=== PATIENT | female | born 1950 | race Caucasian/White ===

== ENCOUNTER 2018-03-28 11:33 | Emergency (ER) | payer MEDICARE, OTHER ==
--- NOTE | 2018-03-28 12:32 | EDM.PDOC ---
ED HPI GENERAL MEDICAL PROBLEM - General Chief Complaint: General Stated Complaint: FELL WHILE RUNNING Time Seen by Provider: 03/28/18 12:10 Source of Information: Reports: Patient History Limitations: Reports: No Limitations - History of Present Illness INITIAL COMMENTS - FREE TEXT/NARRATIVE: 67-year-old female was running and slipped on some gravel and fell forward onto her hands and hit her chin on the ground. She then fell forward and hit her forehead on the ground as well. She has abrasions and tenderness of the left hand, a superficial abrasion on the left knee and an abrasion on her chin. She feels nauseous but did not lose consciousness, denies neck injury or shortness of breath. Her main concerns are her hand and her persistent nausea. Onset: Sudden Duration: Hour(s): (Within the last hour) Location: Reports: Head, Face, Upper Extremity, Left, Lower Extremity, Right Associated Symptoms: Reports: Other (Feels nauseous) Left Hand Pain Score (Numeric/FACES): 3 - Related Data Allergies Allergy/AdvReac Type Severity Reaction Status Date / Time aspirin Allergy Hives Verified 03/28/18 12:01 Penicillins Allergy Anaphylactic Verified 03/28/18 12:01 Shock tetracycline Allergy Hives Verified 03/28/18 12:01 opoids Allergy Hives Uncoded 03/28/18 12:01 Home Meds: Home Meds NK [No Known Home Meds] 03/28/18 [History] Past Medical History Cardiovascular History: Reports: Arrhythmia, Heart Murmur Respiratory History: Reports: Asthma 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 Lumbar surgeryx3 Oncologic Surgical History: Reports: Other (See Below) Other Oncologic Surgeries/Procedures: removed partial cervix Social & Family History - Tobacco Use Smoking Status *Q: Never Smoker Second Hand Smoke Exposure: No - Caffeine Use Caffeine Use: Reports: Coffee, Soda - Alcohol Use Days Per Week of Alcohol Use: 2 Number of Drinks Per Day: 2 Total Drinks Per Week: 4 - Recreational Drug Use Recreational Drug Use: No ED ROS GENERAL - Review of Systems Review Of Systems: See Below Constitutional: Denies: Fever, Chills HEENT: Reports: Other (Patient does have chronic vertigo and intermittent double vision) Respiratory: Denies: Shortness of Breath, Pleuritic Chest Pain Cardiovascular: Denies: Chest Pain GI/Abdominal: Reports: Nausea. Denies: Vomiting Neurological: Reports: Dizziness. Denies: Headache ED EXAM, GENERAL - Physical Exam Exam: See Below Exam Limited By: No Limitations General Appearance: Alert, Anxious Eye Exam: Bilateral Eye: EOMI Throat/Mouth: Other (Patient is a superficial abrasion on the right chin, no bony tenderness) Neck: Supple, Non-Tender Respiratory/Chest: No Respiratory Distress Extremities: Other (Patient has a fairly deep abrasion over the dorsal aspect of the left hand near the fifth MP joint. There is ecchymosis and swelling, tenderness to palpation in the limited ability to flex the fifth finger. No significant deformity. There is a very superficial abrasion on the left knee with minimal tenderness.) Course - Vital Signs Last Recorded V/S: Last Vital Signs Temp 96.1 F 03/28/18 12:11 Pulse 75 03/28/18 12:11 Resp 16 03/28/18 12:11 BP 132/92 H 03/28/18 12:11 Pulse Ox 96 03/28/18 12:11 - Orders/Labs/Meds Orders: Active Orders 24 hr Category Date Time Status Hand Comp Min 3V Lt [CR] Stat Exams 03/28/18 12:18 Taken Meds: Medications Discontinued Medications Generic Name Dose Route Start Last Admin Trade Name Riky PRN Reason Stop Dose Admin Bacitracin 1 dose 03/28/18 12:42 03/28/18 12:46 Bacitracin Oint 1 Gm TOP 03/28/18 12:43 1 dose ONETIME ONE Administration - Re-Assessments/Exams Free Text/Narrative Re-Assessment/Exam: 03/28/18 12:31 A left hand x-ray was obtained. 03/28/18 12:51 Hand x-ray was negative. Wounds were covered with bacitracin and dressed. Neurologically she was doing fine, no further studies needed. 03/28/18 12:59 Patient was given a prescription for 5 10 mg diazepam to use for vertigo when necessary. Departure - Departure Time of Disposition: 13:12 Disposition: Home, Self-Care 01 Condition: Good Clinical Impression: Hand abrasion, non-infected, Abrasion of chin without infection - Discharge Information Instructions: Abrasion Referrals: PCP,None [Primary Care Provider] - Forms: ED Department Discharge Care Plan Goals: Keep wounds covered and clean while healing. Increase activity as tolerated and ice sore areas for the next 2 days. Anti-inflammatories will help, and use diazepam as needed for vertigo. - My Orders Last 24 Hours: My Active Orders 03/28/18 12:18 Hand Comp Min 3V Lt [CR] Stat - Assessment/Plan Last 24 Hours: My Active Orders 03/28/18 12:18 Hand Comp Min 3V Lt [CR] Stat
[2018-03-28] MEDS ORDERED: Bacitracin Oint 1 GM U/D Packet TOP ONE (12:42)
--- NOTE | 2018-03-30 09:59 | CR ---
Hand Comp Min 3V Lt CLINICAL HISTORY: Pain, injury FINDINGS: There is no acute fracture or dislocation of the hand. There is some interphalangeal joint space narrowing. There is also some narrowing at the first carpometacarpal junction. Impression: Mild osteoarthritic changes No fracture
== END 2018-03-28 13:11 | disposition home or self-care (01) ==
LOC: JP.ED 11:33
DX: S60.512A Abrasion of left hand, initial encounter (principal); S00.81XA Abrasion of other part of head, initial encounter; S80.212A Abrasion, left knee, initial encounter; Z88.6 Allergy status to analgesic agent; Z88.0 Allergy status to penicillin; W01.198A Fall on same level from slipping, tripping and stumbling with subsequent striking against other object, initial encounter
CPT/HCPCS: 73130-26-LT; 73130-LT; 99284

== ENCOUNTER 2018-05-01 12:11 | Emergency (ER) | payer MEDICARE, OTHER ==
--- NOTE | 2018-05-01 13:34 | EDM.PDOC ---
ED HPI GENERAL MEDICAL PROBLEM - General Chief Complaint: Eye Problems Stated Complaint: LEFT EYE RED,ITCHY Time Seen by Provider: 05/01/18 13:20 Source of Information: Reports: Patient, RN Notes Reviewed History Limitations: Reports: No Limitations - History of Present Illness INITIAL COMMENTS - FREE TEXT/NARRATIVE: Patient presents with sudden onset itching, redness and irritation with purulent discharge of left eye for 24 hours. She has tried a warm compress without any improvement. - Related Data Allergies Allergy/AdvReac Type Severity Reaction Status Date / Time aspirin Allergy Hives Verified 05/01/18 13:06 Penicillins Allergy Anaphylactic Verified 05/01/18 13:06 Shock tetracycline Allergy Hives Verified 05/01/18 13:06 opoids Allergy Hives Uncoded 03/28/18 12:01 Home Meds: Home Meds NK [No Known Home Meds] 03/28/18 [History] Past Medical History HEENT History: Reports: Impaired Vision, Other (See Below) Other HEENT History: double vision Cardiovascular History: Reports: Arrhythmia, Heart Murmur, Other (See Below) Other Cardiovascular History: PVC's Respiratory History: Reports: Asthma 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 Lumbar surgeryx3 Oncologic Surgical History: Reports: Other (See Below) Other Oncologic Surgeries/Procedures: removed partial cervix Social & Family History - Tobacco Use Smoking Status *Q: Never Smoker - Caffeine Use Caffeine Use: Reports: Coffee, Soda - Recreational Drug Use Recreational Drug Use: No ED ROS GENERAL - Review of Systems Review Of Systems: See Below Constitutional: Denies: Fever, Chills, Malaise HEENT: Reports: Eye Discharge, Eye Pain, Other (irritation, purulent drainage left eye. ) Respiratory: Reports: No Symptoms Cardiovascular: Reports: No Symptoms Musculoskeletal: Reports: No Symptoms Skin: Reports: Other (swelling and redness of left eye lids. ) Neurological: Reports: No Symptoms Psychiatric: Reports: No Symptoms Hematologic/Lymphatic: Reports: No Symptoms Immunologic: Reports: No Symptoms ED EXAM GENERAL W FULL EYE - Physical Exam Exam: See Below Text/Narrative:: Yovana presents today for complaints of left eye pain, irritation and purulent discharge for 24 hours. Use of warm pack did not help. Exam Limited By: No Limitations General Appearance: Alert, WD/WN, No Apparent Distress Eye Exam: Bilateral Eye: EOMI, PERRL, Other (conjunctival redness, slight edema , green purulent discharge.) Eyelids: Right: Normal Appearance, Left: Erythema, Lid Everted for Exam Conjunctiva & Sclera: Right: Normal Appearance, Left: Conjunctival Edema, Discharge Cornea Exam: Left: Normal Appearance Extraocular Movements: Bilateral: Intact Pupils: Normal Accommodation Pupillary Size: Bilateral: 3 mm Pupillary Reaction: Bilateral: Brisk Ears: Normal External Exam, Normal Canal, Hearing Grossly Normal, Normal TMs Head: Atraumatic, Normocephalic Respiratory/Chest: No Respiratory Distress, Lungs Clear, Normal Breath Sounds, No Accessory Muscle Use Cardiovascular: Normal Peripheral Pulses, Regular Rate, Rhythm, No Edema Neurological: Alert, Oriented, Normal Cognition, Normal Gait Skin Exam: Warm, Dry, Intact, Normal Color, No Rash Lymphatic: No Adenopathy Course - Vital Signs Last Recorded V/S: Last Vital Signs Temp 36.1 C 05/01/18 13:05 Pulse 69 05/01/18 13:05 Resp 15 05/01/18 13:05 BP 112/70 05/01/18 13:05 Pulse Ox 95 05/01/18 13:05 Departure - Departure Time of Disposition: 13:33 Disposition: Home, Self-Care 01 Condition: Good Clinical Impression: Bacterial conjunctivitis of left eye - Discharge Information *PRESCRIPTION DRUG MONITORING PROGRAM REVIEWED*: No *COPY OF PRESCRIPTION DRUG MONITORING REPORT IN PATIENT MORALES: No Referrals: PCP,None [Primary Care Provider] - Forms: ED Department Discharge Additional Instructions: You have been evaluated and treated for bacterial conjunctivitis of the left eye. Warm compresses four times a day as needed for comfort. Please use excellent hand hygiene to prevent spread. Use tobradex eye drop, 2 drops four times a day for 5 days. Return for worsening, issues or concerns. - Assessment/Plan Assessment:: Bacterial conjunctivitis left eye Plan: Patient evaluated and treated for bacterial conjunctivitis of the left eye. Warm compresses four times a day as needed for comfort. Please use excellent hand hygiene to prevent spread. Use tobradex eye drop, 2 drops four times a day for 5 days. Medication telephoned in to [place], [place]. Return for worsening, issues or concerns.
== END 2018-05-01 13:59 | disposition home or self-care (01) ==
LOC: JP.ED 12:11
DX: H10.9 Unspecified conjunctivitis (principal); Z88.6 Allergy status to analgesic agent; Z88.0 Allergy status to penicillin; Z88.1 Allergy status to other antibiotic agents; Z88.8 Allergy status to other drugs, medicaments and biological substances
CPT/HCPCS: 99283

== ENCOUNTER 2021-04-19 12:59 | Emergency (ER) | payer MEDICARE, OTHER ==
--- NOTE | 2021-04-19 14:38 | EDM.PDOC ---
ED HPI GENERAL MEDICAL PROBLEM - General Chief Complaint: Headache Stated Complaint: VISION DISTUBANCE/GARGLED SPEECH Time Seen by Provider: 04/19/21 14:32 Source of Information: Reports: Patient History Limitations: Reports: No Limitations - History of Present Illness INITIAL COMMENTS - FREE TEXT/NARRATIVE: Acute onset left vision defect yesterday evening. Round defect with colored peripheral "pixels". After few minutes moved to right eye. Vision problems lasted a few minutes, followed by expressive aphasia with inappropriate word usuage. Speech problems last a couple minutes followed by typical "ocular migraine" symptoms with a left retroorbital headache which is still present. The patient took one baby aspirin last night and repeated it this morning. Has a history of migraines ("ocular migraines") that she treats with cold compresses and Valium. Has history of V. tach and "pre-diabetes". Not a smoker and no history of strokes, coronary artery disease, hyperlipidemia or hypertension. Family history of strokes in old age. Minimal alcohol use. Scheduled for back surgery at [place] in May. Spends 1/2 year in [place]. - Related Data Allergies Allergy/AdvReac Type Severity Reaction Status Date / Time Penicillins Allergy Severe Anaphylactic Verified 04/19/21 13:31 Shock tetracycline Allergy Severe Hives Verified 04/19/21 13:31 aspirin Allergy Mild Other Verified 04/19/21 13:31 opoids Allergy Severe Hives Uncoded 04/19/21 13:31 Home Meds: Home Meds Fish Oil/[place]-3 Fatty Acids [Fish Oil 1,000 MG] 1 each PO DAILY 04/19/21 [History] Montelukast Sodium 10 mg PO DAILY 04/19/21 [History] Pregabalin [Lyrica] 25 mg PO DAILY 04/19/21 [History] Vit A/C/E AC/Znox/Cupric Oxide [Eye Vitamin-Minerals Tablet] 1 each PO DAILY 04/19/21 [History] hydrOXYzine pamoate [Vistaril] 25 mg PO BEDTIME 04/19/21 [History] Past Medical History HEENT History: Reports: Cataract, Impaired Vision, Other (See Below) Other HEENT History: double vision. 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: Neurological History: Reports: Concussion, Vertigo Hematologic History: Reports: Blood Transfusion(s) Oncologic (Cancer) History: Reports: Cervix Other Oncologic History: precancerous cervix - Infectious Disease History Infectious Disease History: Reports: Chicken Pox, Measles, Mumps - Past Surgical History HEENT Surgical History: Reports: Other (See Below) Other HEENT Surgeries/Procedures: double vision GI Surgical History: Reports: Cholecystectomy Neurological Surgical History: Reports: Spinal Fusion Musculoskeletal Surgical History: Reports: Other (See Below) Other Musculoskeletal Surgeries/Procedures:: plates and screws form c5 to c7. Lumbar surgeryx3 Oncologic Surgical History: Reports: Other (See Below) Other Oncologic Surgeries/Procedures: removed partial cervix Social & Family History - Tobacco Use Tobacco Use Status *Q: Never Tobacco User - Caffeine Use Caffeine Use: Reports: Coffee - Recreational Drug Use Recreational Drug Use: No ED ROS GENERAL - Review of Systems Review Of Systems: See Below Constitutional: Reports: No Symptoms HEENT: Reports: Vision Change Respiratory: Reports: No Symptoms Cardiovascular: Reports: No Symptoms Endocrine: Reports: No Symptoms GI/Abdominal: Reports: Nausea. Denies: Vomiting : Reports: No Symptoms Musculoskeletal: Reports: Back Pain Neurological: Reports: Headache, Trouble Speaking, Other (visual field defect) Psychiatric: Reports: No Symptoms Hematologic/Lymphatic: Reports: No Symptoms Immunologic: Reports: No Symptoms - Physical Exam Exam: See Below Exam Limited By: No Limitations General Appearance: Alert, WD/WN, No Apparent Distress Eye Exam: Bilateral Eye: EOMI, Normal Inspection, PERRL Ears: Normal External Exam, Normal Canal, Normal TMs Nose: Normal Inspection Throat/Mouth: Normal Inspection Head Exam: Normocephalic Neck: Normal Inspection, Supple, Non-Tender. No: Lymphadenopathy (R), Lymphadenopathy (L), Thyromegaly Respiratory/Chest: No Respiratory Distress, Lungs Clear, Normal Breath Sounds Cardiovascular: Normal Peripheral Pulses, Regular Rate, Rhythm, No Gallop, No Murmur. No: Bradycardia, Tachycardia GI/Abdominal: Soft Neuro Exam (Abbreviated): Alert, Oriented, CN II-XII Intact, Normal Cognition, No Motor/Sensory Deficits, Other (EOMI, normal visual ruth). No: Sensory/Motor Deficit Psychiatric: Normal Affect, Normal Mood Skin Exam: Warm, Dry Course - Vital Signs Text/Narrative:: The patient was evaluated. Her VSS and exam including a neuro exam was normal. Her NIHSS was 0. Lab obtained. She has a normal CBC and BMP. Her U/A was abnormal and a UC was ordered. She had a normal appearing ECG. Head NCCT was read as unremarkable. Stroke neuro at [facility] consulted. Discussed possibility of TIA vs complex migraine. Risk is high for stroke with TIA. Recommended CTA head and neck. Images obtained and read as normal by radiology. Plavix and baby aspirin recommended. Plavix 75 mg qd and ASA 81 mg qd recommended. F/u with stroke neuro. Given Cipro 500 mg PO in the ED. Rx Cipro 250 mg BID for 7 days. Pt agreed with this plan. Last Recorded V/S: Last Vital Signs Temp 36.1 C 04/19/21 13:45 Pulse 72 04/19/21 17:01 Resp 16 04/19/21 13:45 BP 125/75 04/19/21 17:01 Pulse Ox 95 04/19/21 17:01 - Orders/Labs/Meds Orders: Active Orders 24 hr Category Date Time Status CULTURE URINE [RM] Stat Lab 04/19/21 15:09 Received Iopamidol [Isovue-370 (76%)] Med 04/19/21 16:30 Active 100 ml IV . DIRECTED Sodium Chloride 0.9% [Normal Saline] 80 ml Med 04/19/21 16:30 Active IV ASDIRECTED Sodium Chloride 0.9% [Saline Flush] Med 04/19/21 16:19 Active 10 ml FLUSH ASDIRECTED PRN EKG 12 Lead [EK] Stat Ther 04/19/21 14:31 Ordered Medication Orders Sodium Chloride (Normal Saline) 80 mls @ 3 mls/sec IV ASDIRECTED SAPPHIRE Last Admin: 04/19/21 16:50 Dose: 4 mls/sec Documented by: TYLOR Iopamidol (Iopamidol 755 Mg/Ml 100 Ml Bottle) 100 ml IV . DIRECTED SAPPHIRE Last Admin: 04/19/21 16:50 Dose: 100 ml Documented by: TYLOR Sodium Chloride (Sodium Chloride 0.9% 10 Ml Syringe) 10 ml FLUSH ASDIRECTED PRN PRN Reason: Keep Vein Open Last Admin: 04/19/21 16:51 Dose: 10 ml Documented by: TYLOR Labs: Laboratory Tests 04/19/21 04/19/21 04/19/21 Range/Units 14:34 14:45 14:45 WBC 6.6 (4.5-11.0) K/uL RBC 4.51 (3.30-5.50) M/uL Hgb 13.4 (12.0-15.0) g/dL Hct 40.3 (36.0-48.0) % MCV 89 (80-98) fL MCH 30 (27-31) pg MCHC 33 (32-36) % Plt Count 348 (150-400) K/uL Neut % (Auto) 52.4 (36-66) % Lymph % (Auto) 30.3 (24-44) % [place] % (Auto) 11.2 H (2-6) % Eos % (Auto) 5.3 H (2-4) % Baso % (Auto) 0.8 (0-1) % Sodium 141 (140-148) mmol/L Potassium 4.4 (3.6-5.2) mmol/L Chloride 104 (100-108) mmol/L Carbon Dioxide 30 (21-32) mmol/L Anion Gap 6.6 (5.0-14.0) mmol/L BUN 11 (7-18) mg/dL Creatinine 0.7 (0.6-1.0) mg/dL Est Cr Clr Drug Dosing 58.30 mL/min Estimated GFR (MDRD) > 60 (>60) Glucose 93 (74-106) mg/dL Calcium 9.3 (8.5-10.1) mg/dL Urine Color Yellow (YELLOW) Urine Appearance Cloudy A (CLEAR) Urine pH 6.0 (5.0-8.0) Ur Specific [place] 1.020 (1.008-1.030) Urine Protein Negative (NEGATIVE) mg/dL Urine Glucose (UA) Negative (NEGATIVE) mg/dL Urine Ketones Negative (NEGATIVE) mg/dL Urine Occult Blood Trace-intact H (NEGATIVE) Urine Nitrite Negative (NEGATIVE) Urine Bilirubin Negative (NEGATIVE) Urine Urobilinogen 0.2 (0.2-1.0) EU/dL Ur Leukocyte Esterase Large H (NEGATIVE) Urine RBC 5-10 H (0-5) Urine WBC Semi-packed H (0-5) Ur Epithelial Cells Few Amorphous Sediment Occasional Urine Bacteria Moderate Urine Mucus Occasional Meds: Medications Generic Name Dose Route Start Last Admin Trade Name Frejack PRN Reason Stop Dose Admin Sodium Chloride 80 mls @ 3 mls/sec 04/19/21 16:30 04/19/21 16:50 Normal Saline IV 4 mls/sec ASDIRECTED SAPPHIRE Administration Iopamidol 100 ml 04/19/21 16:30 04/19/21 16:50 Iopamidol 755 Mg/Ml 100 Ml Bottle IV 100 ml . DIRECTED SAPPHIRE Administration Sodium Chloride 10 ml 04/19/21 16:19 04/19/21 16:51 Sodium Chloride 0.9% 10 Ml Syringe FLUSH 10 ml ASDIRECTED PRN Administration Keep Vein Open Discontinued Medications Generic Name Dose Route Start Last Admin Trade Name Riky PRN Reason Stop Dose Admin Ciprofloxacin 500 mg 04/19/21 16:15 Ciprofloxacin 500 Mg Tab PO 04/19/21 16:16 ONETIME ONE Departure - Departure Time of Disposition: 17:52 Disposition: DC/Tfer to [facility]04 Condition: Good Clinical Impression: TIA (transient ischemic attack), UTI (urinary tract infection) - Discharge Information Referrals: PCP,None [Primary Care Provider] - Forms: ED Department Discharge Additional Instructions: Take the prescribed meds. F/u with stroke neurology. Return to the ED as needed. Sepsis Event Note (ED) - Evaluation Sepsis Screening Result: No Definite Risk - Focused Exam Vital Signs: Vital Signs Temp Pulse Resp BP Pulse Ox 04/19/21 17:01 72 125/75 95 04/19/21 16:30 74 132/85 04/19/21 15:30 75 130/75 98 04/19/21 14:40 72 130/79 98 04/19/21 13:45 36.1 C 76 16 125/73 98 04/19/21 13:20 36.1 C 76 16 125/73 98 - My Orders Last 24 Hours: My Active Orders 04/19/21 14:31 EKG 12 Lead [EK] Stat 04/19/21 15:09 CULTURE URINE [RM] Stat 04/19/21 16:19 Sodium Chloride 0.9% [Saline Flush] 10 ml FLUSH ASDIRECTED PRN 04/19/21 16:30 Iopamidol [Isovue-370 (76%)] 100 ml IV . DIRECTED Sodium Chloride 0.9% [Normal Saline] 80 ml IV ASDIRECTED - Assessment/Plan Last 24 Hours: My Active Orders 04/19/21 14:31 EKG 12 Lead [EK] Stat 04/19/21 15:09 CULTURE URINE [RM] Stat 04/19/21 16:19 Sodium Chloride 0.9% [Saline Flush] 10 ml FLUSH ASDIRECTED PRN 04/19/21 16:30 Iopamidol [Isovue-370 (76%)] 100 ml IV . DIRECTED Sodium Chloride 0.9% [Normal Saline] 80 ml IV ASDIRECTED
--- NOTE | 2021-04-19 15:45 | CT ---
Head wo Cont CLINICAL HISTORY: Visual field defect COMPARISON: None TECHNIQUE: Transverse scans were obtained from the base of the skull through the vertex without IV contrast on a multislice, multidetector CT scanner. Auto dosage reduction and iterative reconstruction techniques employed. FINDINGS: There is a small area of low-attenuation in the right basal ganglia involving the anterior limb of the internal capsule and head of the caudate nucleus. There is also some scattered periventricular and subcortical lucencyThere. Is no mass effect, hemorrhage, or extraaxial collection. The basal cisterns and sulci over the convexities are prominent. The ventricles are normal for age. IMPRESSION: Age-related atrophy Chronic ischemic microvascular changes Ill-defined small low-attenuation focus in the right basal ganglia. This could represent previous lacunar type ischemic infarct. This could represent some chronic ischemic microvascular change. No hemorrhage or mass effect. If clinically relevant short-term follow-up is a consideration
[2021-04-19] MEDS ORDERED: Ciprofloxacin 500 MG Tab PO ONE (16:15)
[2021-04-19] MEDS ORDERED: Sodium Chloride 0.9% 10 ML Syringe FLUSH PRN (16:19)
[2021-04-19] MEDS ORDERED: Iopamidol 755 Mg/ML 100 ML Bottle IV SCH (16:30)
[2021-04-19] MEDS ORDERED: Sodium Chloride 0.9% 80 ML IV SCH (16:30)
--- NOTE | 2021-04-19 17:24 | CRLCT ---
For Patients: As a result of the Century Cures Act, medical imaging exams and procedure reports are released immediately into your electronic medical record. You may view this report before your referring provider. If you have questions, please contact your health care provider. CT ANGIOGRAM HEAD AND NECK DATE: 04/19/2021 CLINICAL HISTORY: Patient with transient ischemic attack. TECHNIQUE: Standard helical CT image acquisition through the head and neck was performed after intravenous contrast bolus enhancement. Multiplanar reconstructed images were performed and interpreted. COMPARISON: CT same day. FINDINGS: The origins of the great vessels from the aortic arch are patent. The origin of the right vertebral artery is patent. The origin of the left vertebral artery is patent. The common carotid arteries are patent There is no stenosis at the origin of the right internal carotid artery. There is no stenosis at the origin of the left internal carotid artery. The rest of the cervical segments of the internal carotid arteries are patent up to their intracranial segments. The intracranial segments of the internal carotid arteries are patent. The right vertebral artery is dominant. The cervical segments of the vertebral arteries are patent. The intracranial segments of the vertebral arteries are patent. The middle cerebral arteries are normal without aneurysm or proximal occlusion identified. The anterior cerebral arteries are normal without aneurysm or proximal occlusion identified. The anterior communicating artery is well visualized and appears normal. The basilar artery is normal without aneurysm or occlusion. The posterior cerebral arteries are normal without aneurysm or proximal occlusion. The visualized lung apices are unremarkable The thyroid gland is unremarkable. The soft tissues of the neck are unremarkable. There are degenerative changes in the cervical spine. IMPRESSION: Normal CT angiogram of the head and neck. Please note that all CT scans at this facility use dose modulation, iterative reconstruction, and/or weight-based dosing when appropriate to reduce radiation dose to as low as reasonably achievable. Dictated by: Awa Farrell MD @ 04/19/2021 17:23:56 (Electronically Signed)
== END 2021-04-19 18:06 ==
LOC: JP.ED 12:59
DX: G45.9 Transient cerebral ischemic attack, unspecified (principal); N39.0 Urinary tract infection, site not specified; Z88.0 Allergy status to penicillin; Z88.8 Allergy status to other drugs, medicaments and biological substances; Z88.1 Allergy status to other antibiotic agents; Z88.5 Allergy status to narcotic agent
CPT/HCPCS: 36415; 70450; 70496; 70498; 80048; 81001; 85025; 87086; 87088; 87186; 93005; 99285; A9270; Q9967